=== PATIENT | male | born 1960 | race Caucasian/White ===

== ENCOUNTER → 2022-01-07 | Outpatient (CLI) | payer BC ==
--- NOTE | 2022-01-08 02:58 | MR ---
EXAMINATION TYPE: MR shoulder LT wo con DATE OF EXAM: 01/07/2022 COMPARISON: 10/06/2012 HISTORY: Left shoulder pain, hx surgery. Multiplanar multi echo imaging of the left shoulder without contrast. There is mixed signal at the greater tuberosity humerus related to previous surgery. There are small full-thickness tear of the supraspinatus tendon near the attachment on the greater tuberosity. There is no retraction. The AC joint is intact. No significant subacromial impingement. Subscapularis tendon is intact. Glenoid jorje are intact. Biceps tendon is intact. No evidence of a f racture. There are small areas of fluid signal along the infraspinatus tendon. There is small subdelt oid effusion. IMPRESSION: Small shoulder joint effusion and subdeltoid effusion. Small full-thickness tear on the anterior aspe ct of the supraspinatus tendon. No retraction. Postsurgical changes of the greater tuberosity. No fracture seen. Fluid slightly increased compared t o old exam. Surgical changes and cystic changes in the greater tuberosity are increased compared to o ld exam.
== END | disposition home or self-care (01) ==
LOC: RADMRIMAIN 18:08
PROVIDERS: ATTEND Orthopaedic Surgery
DX: M75.122 Complete rotator cuff tear or rupture of left shoulder, not specified as traumatic (principal); M25.412 Effusion, left shoulder; M85.612 Other cyst of bone, left shoulder

== ENCOUNTER → 2022-02-05 | Outpatient (CLI) | payer BC ==
[2022-02-05 23:06] LABS: Anion Gap 7.7 mmol/L (10.00-18.00); Carbon Dioxide 29.8 mmol/L (20.0-27.5); Potassium 4.9 mmol/L (3.5-5.5)
[2022-02-05 23:20] LABS: Basophils # (A) 0.01 X 10*3/uL (0.00-0.10); Basophils % (A) 0.2 %; Eosinophils % (A) 4.2 %; HCT 46.6 % (39.6-50.0); HGB 14.4 g/dL (13.0-17.0); Immature Grans, Automated 0.2 %; Lymphocytes # (A) 1.56 X 10*3/uL (0.90-5.00); Lymphocytes % (A) 33.1 %; MCH 29.8 pg (27.0-32.0); MCHC 30.9 g/dL (32.0-37.0); MCV 96.3 fL (80.0-97.0); Mean Platelet Volume 11.9 fL (9.5-12.2); Monocytes # (A) 0.44 X 10*3/uL (0.20-1.00); Monocytes % (A) 9.3 %; NRBC Per 100 WBC 0 /100 WBCS (0.0-0.0); Neutrophils # (A) 2.49 X 10*3/uL (1.80-7.70); Platelet Count 243 X 10*3/uL (140-440); RBC 4.84 X 10*6/uL (4.40-5.60); RDW 13.4 % (11.5-14.5); WBC 4.71 X 10*3/uL (4.50-10.00)
== END | disposition home or self-care (01) ==
LOC: LABPAT 09:39
PROVIDERS: ATTEND Orthopaedic Surgery
DX: Z01.812 Encounter for preprocedural laboratory examination (principal); M75.42 Impingement syndrome of left shoulder
CPT/HCPCS: 80051; 85025

== ENCOUNTER 2022-02-19 05:56 | Day surgery (SDC) | payer BC ==
--- NOTE | 2022-02-18 20:23 | HP ---
HISTORY AND PHYSICAL DATE OF SURGERY: 02/19/2022 Giovany De La Fuente is a 61-year-old gentleman seen with progressive left shoulder pain. We discussed options for treatment. He elected to proceed with left shoulder arthroscopy. Consent was obtained. PAST MEDICAL HISTORY: Noncontributory. SURGICAL HISTORY: Right shoulder arthroscopy, left shoulder arthroscopy, herniorrhaphy. DAILY MEDICATIONS: Advil. ALLERGIES: NONE. SOCIAL HISTORY: He denies tobacco use. PHYSICAL EVALUATION OF THE LEFT SHOULDER: His flexion is 150 degrees, abduction is 140 degrees, external rotation is 40 degrees with weakness and pain. Tenderness along the anterolateral rotator cuff in the anterolateral acromion area. Impingement is positive at 90 degrees. Drop-arm sign is positive. Distal neurovascular exam is intact. Radiographs of his left shoulder revealed a lateral downsloping acromion, cystic changes of the tuberosity, a previous stable-appearing resection arthroplasty of the acromioclavicular joint. MRI left shoulder revealed rotator cuff tendon tear. IMPRESSION: Left shoulder impingement with rotator cuff tear. PLAN: Left shoulder arthroscopy with subacromial decompression, arthroscopic rotator cuff repair and debridement. MMODL / IJN: [id number] /
[2022-02-19] MEDS ORDERED: ONDANSETRON 4 MG/2 ML VIAL IVP ONE (06:08)
[2022-02-19] MEDS ORDERED: DEXAMETHASONE SOD PHOSPHATE 4 MG/ML 1 ML VIAL IV ONE (06:08)
[2022-02-19] MEDS ORDERED: HYDROmorphone 0.5 MG/0.5 ML SYRINGE IVP PRN (06:08)
[2022-02-19] MEDS ORDERED: LACTATED RINGERS 1,000 ML IV SCH (06:08)
[2022-02-19] MEDS ORDERED: LIDOCAINE 1% (10MG/ML) FOR IV START INTRADERMA ONE (06:46)
[2022-02-19] MEDS ORDERED: MIDAZOLAM 2 MG/2 ML VIAL IV ONE (06:54)
[2022-02-19] MEDS ORDERED: fentaNYL (PF) 50 MCG/ML 2 ML AMP IV ONE (06:54)
[2022-02-19] MEDS ORDERED: fentaNYL (PF) 50 MCG/ML 2 ML AMP ONE (07:24)
[2022-02-19] MEDS ORDERED: MIDAZOLAM 2 MG/2 ML VIAL ONE (07:24)
[2022-02-19] MEDS ORDERED: PROPOFOL 10 MG/ML 20 ML VIAL IV ONE (07:24)
[2022-02-19] MEDS ORDERED: SUCCINYLCHOLINE CHLORIDE 100 MG/5 ML SYR IV ONE (07:24)
[2022-02-19] MEDS ORDERED: GLYCOPYRROLATE 0.2 MG/ML 2 ML VIAL ONE (07:24)
[2022-02-19] MEDS ORDERED: ROPIVACAINE 5 MG/ML 30 ML VIAL ONE (07:24)
[2022-02-19] MEDS ORDERED: ePHEDrine 50 MG/ML 1 ML VIAL ONE (07:24)
--- NOTE | 2022-02-19 08:55 | P.OP ---
Date of Procedure: 02/19/22 Preoperative Diagnosis: Left shoulder impingement Postoperative Diagnosis: 1. Left shoulder rotator cuff tear 2. Left shoulder impingement Procedure(s) Performed: 1. Left shoulder arthroscopic rotator cuff repair 2. Left shoulder arthroscopic subacromial decompression Implants: 15.5 Arthrex swivel lock anchor Anesthesia: GETA, regional (Interscalene block) Surgeon: Albert Mackey Credit Risk Specialist #1: Tomás Gimenez Estimated Blood Loss (ml): 5 Pathology: none sent Condition: stable Disposition: PACU Indications for Procedure: 61-year-old patient seen with progressive left shoulder pain. After having treatment options discussed, he elected to proceed with arthroscopy. Operative Findings: see description of procedure Description of Procedure: Patient underwent an interscalene block by department of anesthesia. The patient was then taken to the operative suite. The patient underwent a general anesthetic by the department of anesthesia. The patient was placed into a lateral position and secured. There was appropriate padding of the bony prominence. Left shoulder was then prepped and draped in normal sterile orthopedic fashion. We placed the extremity in 10 pounds of longitudinal traction. A posterior incision was now made for a posterior working portal site. The trocar and cannula were inserted into the glenohumeral joint. Arthroscopy was initiated. Spinal needle was now inserted anteriorly, to ascertain the anterior working portal site. An incision was now made in that area, a trocar was inserted followed by a probe. There was some superficial fraying of the superior labrum. The biceps tendon was absent. There were mild grade 1 chondromalacia changes of the glenohumeral joint without tears. I debrided out the superficial fraying of the labrum. The residual labrum was probed and it was found to be stable. Instruments were now removed from glenohumeral joint. Utilizing the posterior working portal site, the trocar and cannula were inserted into the subacromial space. Arthroscopy initiated. I made an incision 2 fingerbreadths lateral to the acromion. I introduced my trocar followed by my ArthroCare ablator. I now began ablating thick subacromial bursal tissue, which exposed the undersurface of the anterior acromion. There was some recurrent spurring along the lateral aspect of the acromion. I introduced a motorized bur and performed a subacromial decompression. We now noted good subacromial space. There was evidence for previous acromioclavicular joint excisional arthroplasty with residual stable area. I now turned my attention to the rotator cuff tendon. There was a tear along the posterior distal supraspinatus measuring approximately 11.5 cm. I debrided the margins getting down to stable tendon tissue. I abraded the footprint with a motorized bur. With the assistance of Austin FONG passed 2 everted mattress sutures through good bites of rotator cuff tendon. I now punched hole in the footprint area for insertion of an anchor. All 4 limbs of suture were now passed through the eyelet of a 5.5 Arthrex swivel lock anchor. I placed the eyelet into our pre-punch hole. I held it in position while Austin FONG tension all 4 limbs of suture and a china the anchor was good fixation noted. All residual suture limbs were now clipped. We had good compression of the tendon along the entire footprint. Instruments now removed from the portal sites. All portal sites were approximated with nylon suture. Sterile dressings were applied followed by a shoulder sling. Tomás FONG assisted in this case. The patient was awakened, transferred to a bed, and taken to recovery in stable condition.
[2022-02-19 08:57] VITALS: TEMP 96.9
--- NOTE | 2022-02-19 09:34 | P.ANPRN ---
Procedure Note - Anesthesia - Nerve Block Performed Left Interscalene Single Time Out Performed: Yes ([id number]) Date of Procedure: 02/19/22 Procedure Start Time: 06:55 Procedure Stop Time: 06:59 Location of Patient: PreOp Indication: Acute Post-Operative Pain, Requested by Surgeon Specifically requested for management of pain by DrHamzah: Albert Mackey Sedation Type: Sedate with meaningful contact maintained Preparation: Sterile Prep Position: Supine Catheter: None Needle Types: Pajunk Needle Gauge: 21 Ultrasound used to visualize needle placement: Yes Ultrasound used to observe medication spread: Yes Injectate: 0.5% Ropivacaine (see comment for volume) (30cc) Blood Aspirated: No Pain Paresthesia on Injection Noted: No Resistance on Injection: Normal Image Stored and Saved: Yes Events: Uneventful and Well Tolerated
[2022-02-19 10:35] VITALS: BP 131/80; PULSE 52; RESP 20
== END 2022-02-19 10:36 | disposition home or self-care (01) ==
LOC: OR 05:56
PROVIDERS: ATTEND Orthopaedic Surgery
DX: M75.102 Unspecified rotator cuff tear or rupture of left shoulder, not specified as traumatic (principal); M25.812 Other specified joint disorders, left shoulder; Z98.890 Other specified postprocedural states; Z79.1 Long term (current) use of non-steroidal anti-inflammatories (NSAID)
CPT/HCPCS: 64415; 76942; 29826; 29827; C1713; J2250; J1100; J2405; J0690; J3010; J2795; J0330; J2704

== ENCOUNTER → 2023-04-27 | Outpatient (CLI) | payer BC ==
[2023-04-27 14:58] LABS: Anion Gap 9.5 mmol/L (4.00-12.00); Carbon Dioxide 28.5 mmol/L (21.6-31.8); Potassium 4.7 mmol/L (3.5-5.5)
[2023-04-27 15:01] LABS: Basophils # (A) 0.02 X 10*3/uL (0.00-0.10); Basophils % (A) 0.5 %; Eosinophils % (A) 4.6 %; HCT 46.6 % (39.6-50.0); HGB 15.8 d/dL (13.0-17.0); Lymphocytes # (A) 1.28 X 10*3/uL (0.90-5.00); Lymphocytes % (A) 29.3 %; MCH 31.2 pg (27.0-32.0); MCHC 33.9 d/dL (32.0-37.0); MCV 91.9 FL (80.0-97.0); Mean Platelet Volume 11.1 FL (9.5-12.2); Monocytes # (A) 0.41 X 10*3/uL (0.20-1.00); Monocytes % (A) 9.4 %; NRBC Per 100 WBC 0 X 10*3/uL (0.00-0.01); Neutrophils # (A) 2.45 X 10*3/uL (1.80-7.70); Platelet Count 249 X 10*3/uL (140-440); RBC 5.07 X 10*6/uL (4.40-5.60); RDW 13.3 % (11.5-14.5); WBC 4.37 X 10*3/uL (4.50-10.00)
== END | disposition home or self-care (01) ==
LOC: LABPAT 08:23
PROVIDERS: ATTEND Orthopaedic Surgery
DX: Z01.818 Encounter for other preprocedural examination (principal); I49.8 Other specified cardiac arrhythmias; M75.41 Impingement syndrome of right shoulder; R94.31 Abnormal electrocardiogram [ECG] [EKG]
CPT/HCPCS: 36415; 80051; 85025; 93005

== ENCOUNTER 2023-05-19 07:22 | Day surgery (SDC) | payer BC ==
--- NOTE | 2023-05-18 14:27 | HP ---
HISTORY AND PHYSICAL DATE OF SURGERY: 05/19/2023. HISTORY OF PRESENT ILLNESS: Giovany De La Fuente is a 62-year-old gentleman seen with progressive right shoulder pain. We discussed options for treatment. He elected to proceed with right shoulder arthroscopy. Consent was obtained. PAST MEDICAL HISTORY: Noncontributory. SURGICAL HISTORY: Bilateral shoulder arthroscopy, herniorrhaphy. DAILY MEDICATIONS: Advil. ALLERGIES: None. SOCIAL HISTORY: Denies tobacco use. PHYSICAL EVALUATION OF THE RIGHT SHOULDER: Flexion is 160 degrees, abduction is 140 degrees, external rotation is 30 degrees with weakness. There is tenderness along the anterolateral acromion and rotator cuff insertion. Impingement is positive at 90 degrees. Drop arm sign is positive. Distal neurovascular exam is intact. IMAGING: Radiographs of right shoulder, lateral downsloping anterior acromion. MRI of right shoulder; rotator cuff tear, labral tear. IMPRESSION: 1. Right shoulder impingement with rotator cuff tear. 2. Right shoulder labral tear. PLAN: Right shoulder arthroscopy with subacromial decompression and rotator cuff repair and debridement. MMODL / IJN: [id number] /
[2023-05-19] MEDS ORDERED: HYDROmorphone 0.5 MG/0.5 ML SYRINGE IVP PRN (07:44)
[2023-05-19] MEDS ORDERED: LACTATED RINGERS 1,000 ML IV SCH (07:44)
[2023-05-19] MEDS ORDERED: DEXAMETHASONE SOD PHOSPHATE 4 MG/ML 1 ML VIAL IV ONE (07:44)
[2023-05-19] MEDS ORDERED: ONDANSETRON 4 MG/2 ML VIAL IVP ONE (07:44)
[2023-05-19] MEDS ORDERED: MIDAZOLAM 2 MG/2 ML VIAL IV PRN (07:44)
[2023-05-19] MEDS ORDERED: LIDOCAINE 1% (10MG/ML) FOR IV START INTRADERMA PRN (07:44)
[2023-05-19] MEDS ORDERED: LACTATED RINGERS 1,000 ML IV ONE (07:45)
[2023-05-19] MEDS ORDERED: MIDAZOLAM 2 MG/2 ML VIAL IVP ONE (08:09)
[2023-05-19] MEDS ORDERED: ePHEDrine 50 MG/ML 1 ML VIAL ONE (09:51)
[2023-05-19] MEDS ORDERED: DEXAMETHASONE SOD PHOSPHATE 4 MG/ML 1 ML VIAL ONE (09:51)
[2023-05-19] MEDS ORDERED: PROPOFOL 10 MG/ML 20 ML VIAL IV ONE (09:51)
[2023-05-19] MEDS ORDERED: SUCCINYLCHOLINE CHLORIDE 200 MG/10 ML VIAL IV ONE (09:51)
[2023-05-19] MEDS ORDERED: fentaNYL (PF) 50 MCG/ML 2 ML AMP ONE (09:51)
[2023-05-19] MEDS ORDERED: LIDOCAINE 2% INJ 20 MG/ML (2 ML VIAL) ONE (09:51)
[2023-05-19] MEDS ORDERED: MIDAZOLAM 2 MG/2 ML VIAL ONE (09:51)
[2023-05-19] MEDS ORDERED: ROPIVACAINE 5 MG/ML 30 ML VIAL ONE (09:51)
[2023-05-19] MEDS ORDERED: SODIUM CHLORIDE 0.9% 50 ML with ceFAZolin 1,000 MG IV ONE ×2 (10:24)
--- NOTE | 2023-05-19 11:10 | P.ANPRN ---
Procedure Note - Anesthesia - Nerve Block Performed Right Interscalene Single Location of Patient: PreOp Indication: Acute Post-Operative Pain, Dx/Pain Location (Right shoulder pain), Requested by Surgeon Specifically requested for management of pain by : Albert Mackey Sedation Type: Sedate with meaningful contact maintained Preparation: Sterile Prep Position: Supine Catheter: None Needle Types: Pajunk Needle Gauge: 21 Ultrasound used to visualize needle placement: Yes Ultrasound used to observe medication spread: Yes Injectate: 0.5% Ropivacaine (see comment for volume) (30 mL + 4mg of Decadron) Blood Aspirated: No Pain Paresthesia on Injection Noted: No Resistance on Injection: Normal Image Stored and Saved: Yes Events: Uneventful and Well Tolerated
--- NOTE | 2023-05-19 11:11 | P.OP ---
Date of Procedure: 05/19/23 Preoperative Diagnosis: Right shoulder impingement Postoperative Diagnosis: 1. Right shoulder rotator cuff tear 2. Right shoulder impingement 3. 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 Right shoulder arthroscopic rotator cuff repair 2. Right shoulder arthroscopic subacromial decompression Implants: 1Arthrex 4.75 swivel lock anchor Anesthesia: GETA, regional (Interscalene block) Surgeon: Albert Mackey Legal Technician #1: Jeremiah Moncada Estimated Blood Loss (ml): 11 Pathology: none sent Condition: stable Disposition: PACU Indications for Procedure: 62-year-old patient who was seen with progressive right shoulder pain. After having treatment options discussed, he elected to proceed with arthroscopy. Operative Findings: see description of procedure Description of Procedure: Patient underwent an interscalene block by department of anesthesia. The patient was then taken to the operative suite. The patient underwent a general anesthetic by the department of anesthesia. The patient was placed into a lateral position and secured. There was appropriate padding of the bony prominence. Right shoulder was then prepped and draped in normal sterile orthopedic fashion. We placed the extremity in 10 pounds of longitudinal traction. A posterior incision was now made for a posterior working portal site. The trocar and cannula were inserted into the glenohumeral joint. Arthroscopy was initiated. Spinal needle was now inserted anteriorly, to ascertain the anterior working portal site. An incision was now made in that area, a trocar was inserted followed by a probe. There was grade 3 chondromalacia of the humeral head with no Velez and osteochondral tears present. There was grade 2/3 chondromalacia of the glenoid fossa without Velez and osteochondral tears present. The biceps tendon was absent. The labrum up tear somewhat diminutive but was stable without evidence for tear. At this point instruments removed from glenohumeral joint. Utilizing the posterior working portal site, the trocar and cannula were inserted into the subacromial space. Arthroscopy initiated. I made an incision 2 fingerbreadths lateral to the acromion. I introduced my trocar followed by my ArthroCare ablator. I now began ablating thick subacromial bursal tissue, which exposed the undersurface of the anterior acromion. There was diminished subacromial space. There was some prominence of the anterior lateral acromion present. I introduced a motorized bur and performed a subacromial decompression. The decompression appeared stable. The acromioclavicular joint was noted to have previous decompression appeared stable. I turned my attention to the rotator cuff tendon. There was a tear along the distal supraspinatus tendon measuring just under a centimeter. I debrided the margins getting down to stable tendon tissue. The tear measured approximately 1.5 cm at this point it was freely mobile over the footprint. I abraded the footprint with a motorized bur. I now with the assistance of Jeremiah FONG passed 3 everted mattress sutures through good bites of rotator cuff tendon. I punched the hole in the area of the footprint for insertion of an anchor. All 6 limbs of suture were passed through the eyelet of a Arthrex 4.75 swivel lock anchor. I placed the eyelet into our pre-punch hole. I held it in position while Jeremiah FONG tensioned all 6 limbs of suture and deployed the anchor with good fixation noted. All residual suture limbs were now clipped. We had good compression of the tendon along the entire footprint. Instruments now removed from the portal sites. All portal sites were approximated with nylon suture. Sterile dressings were applied followed by a shoulder sling. Jeremiah FONG assisted in this complex case. The patient was awakened, transferred to a bed, and taken to recovery in stable condition.
[2023-05-19 11:23] VITALS: TEMP 96.8
[2023-05-19 12:28] VITALS: BP 115/74; PULSE 72; RESP 16
== END 2023-05-19 12:45 | disposition home or self-care (01) ==
LOC: OR 07:22
PROVIDERS: ATTEND Orthopaedic Surgery
DX: M75.101 Unspecified rotator cuff tear or rupture of right shoulder, not specified as traumatic (principal); M75.41 Impingement syndrome of right shoulder; M94.211 Chondromalacia, right shoulder; G89.18 Other acute postprocedural pain; Z79.899 Other long term (current) drug therapy
CPT/HCPCS: 64415; 29827; 29826; C1713; J2250; J0330; J1100; J2405; J0690; J3010; J2795; J2704; J2001

== ENCOUNTER → 2024-01-21 | Outpatient (CLI) | payer BC ==
[2024-01-21 14:32] LABS: Basophils # (A) 0.02 X 10*3/uL (0.00-0.10); Basophils % (A) 0.5 %; Eosinophils # (A) 0.24 X 10*3/uL (0.04-0.35); Eosinophils % (A) 5.5 %; HCT 47.2 % (39.6-50.0); HGB 15.3 g/dL (13.0-17.0); Lymphocytes # (A) 1.35 X 10*3/uL (0.90-5.00); Lymphocytes % (A) 30.8 %; MCH 30.8 pg (27.0-32.0); MCHC 32.4 g/dL (32.0-37.0); MCV 95.2 FL (80.0-97.0); Mean Platelet Volume 11.5 FL (9.5-12.2); Monocytes # (A) 0.45 X 10*3/uL (0.20-1.00); Monocytes % (A) 10.3 %; NRBC Per 100 WBC 0 X 10*3/uL (0.00-0.01); Neutrophils # (A) 2.32 X 10*3/uL (1.80-7.70); Neutrophils % (A) 52.7 %; Platelet Count 236 X 10*3/uL (140-440); RBC 4.96 X 10*6/uL (4.40-5.60); RDW 13.8 % (11.5-14.5); WBC 4.39 X 10*3/uL (4.50-10.00)
[2024-01-21 15:39] LABS: ALT 23 U/L (10-49); AST 39 U/L (14-35); Albumin 4.4 g/dL (3.8-4.9); Albumin/Globulin Ratio 1.69 Ratio (1.60-3.17); Alkaline Phosphatase 84 U/L (41-126); Blood Urea Nitrogen 17.7 mg/dL (9.0-27.0); Calcium 9.7 mg/dL (8.7-10.3); Carbon Dioxide 28.9 mmol/L (21.6-31.8); Chloride 102 mmol/L (96-109); Chol/HDL Ratio 3.34 Ratio; Globulin 2.6 g/dL (1.6-3.3); Glucose 92 mg/dL (70-110); Sodium 140 mmol/L (135-145); Total Bilirubin 0.4 mg/dL (0.3-1.2)
== END | disposition home or self-care (01) ==
LOC: LABWHC1 08:55
PROVIDERS: ATTEND Family Medicine
DX: Z00.00 Encounter for general adult medical examination without abnormal findings (principal); Z12.5 Encounter for screening for malignant neoplasm of prostate
CPT/HCPCS: 80061; 80053; 85025; 36415; G0103